=== PATIENT | male | born 1995 | race Two or more races ===

== ENCOUNTER 2016-07-31 01:07 | Emergency (ER) | payer SELFPAY ==
[~2016-07-31] VITALS: Ht 154.9 cm; Wt 61.2 kg
[2016-07-31 01:13] VITALS: BP 133/73
[2016-07-31 01:29] LABS: BASOPHILS % (AUTO) 1.1 % (0.0-2.0); EOSINOPHILS % (AUTO) 1.6 % (0.0-3.0); LYMPHOCYTES % (AUTO) 42.5 % (20.0-45.0); MEAN CORPUSCULAR HEMOGLOBIN 31.4 PG (27.0-31.0); MEAN CORPUSCULAR HGB CONC 34.3 G/DL (32.0-36.0); MEAN CORPUSCULAR VOLUME 91 FL (80-99); MEAN PLATELET VOLUME 6.1 FL (6.5-10.1); MONOCYTES % (AUTO) 6.7 % (1.0-10.0); NEUTROPHILS % (AUTO) 48.1 % (45.0-75.0); PLATELET COUNT 330 K/UL (150-450); RED BLOOD COUNT 5.16 M/UL (4.70-6.10); RED CELL DISTRIBUTION WIDTH 12.2 % (11.6-14.8)
[2016-07-31 01:45] LABS: ALCOHOL < 10 mg/dL; ANION GAP 32 (5-15); CARBON DIOXIDE 15 mEQ/L (20-30); CHLORIDE 89 mEQ/L (98-107); GLOMERULAR FILTRATION RATE > 60 mL/min (>60); HEMOLYSIS 25; SODIUM 136 mEQ/L (135-145)
--- NOTE | 2016-07-31 01:47 | Emergency Room Report ---
History of Present Illness General Chief Complaint: Seizure Source: Patient, Family Member Present Illness HPI Is a 21-year-old male with history of hypocalcemia. He presents with new onset seizure. Per his , he went out to smoke and when he came back to eat, he stiffen up and had a tonic-clonic seizure activity. This lasted for a minute or so. He was confused afterward. No or trauma. No incontinence of bowel or urine. Never had this problem before. He did say that he occasionally uses methamphetamine. Patient is slightly confused but otherwise denying any other problem. He does not drive. Allergies: Coded Allergies: No Known Allergies (Unverified , 07/31/16) Patient History Past Medical History: see triage record, old chart reviewed Past Surgical History: none Pertinent Family History: none Social History: Reports: drug use, smoking Immunizations: other Reviewed Nursing Documentation: PMH: Agreed, PSxH: Agreed Nursing Documentation-PM Past Medical History: No History, Except For Review of Systems Eye: Denies: blurred vision, eye pain ENT: Denies: ear pain, nose congestion, throat swelling Respiratory: Denies: cough, shortness of breath Cardiovascular: Denies: chest pain, palpitations Gastrointestinal: Denies: abdominal pain, diarrhea, nausea, vomiting Musculoskeletal: Denies: back pain, joint pain Skin: Denies: rash Neurological: Denies: headache, numbness Endocrine: Denies: increased thirst, increased urine Hematologic/Lymphatic: Denies: easy bruising All Other Systems: negative except mentioned in HPI Physical Exam Vital Signs Date Time Temp Pulse Resp B/P Pulse Ox O2 Delivery O2 Flow Rate FiO2 07/31/16 01:05 98.2 129 25 133/73 97 07/31/16 01:13 Room Air vitals with tachycardia Sp02 EP Interpretation: reviewed, normal General Appearance: well appearing, no apparent distress, alert Head: normocephalic, atraumatic Eyes: bilateral eye EOMI, bilateral eye PERRL ENT: hearing grossly normal, normal pharynx Neck: full range of motion, supple, no meningismus Respiratory: chest non-tender, lungs clear, normal breath sounds Cardiovascular #1: regular rate, rhythm, no murmur Gastrointestinal: normal bowel sounds, non tender, no mass, no organomegaly, no bruit, non-distended Musculoskeletal: back normal, normal range of motion Neurologic: alert, other - Mild confusion Psychiatric: mood/affect normal Skin: warm/dry Medical Decision Making Diagnostic Impression: Primary Impression: Epileptic seizure, generalized Additional Impressions: Hypokalemia Hypocalcemia Amphetamine abuse ER Course Patient with one episode seizure. He does have known history of hypocalcemia. He is not taking any calcium because he could not going up to [place] to see his own doctor. No evidence of bleed or neoplastic process. We'll discharge home. Lab Results Impression labs with hypocalcemia EKG Diagnostic Results Rate: normal, tachycardiac Rhythm: NSR ST Segments: no acute changes Rhythm Strip Diag. Results EP Interpretation: yes Rate: 107 Rhythm: NSR, no PVC's, no ectopy CT/MRI/US Diagnostic Results CT/MRI/US Diagnostic Results : Imaging Test Ordered: CT head Impression negative per radiologist Last Vital Signs Date Time Temp Pulse Resp B/P Pulse Ox O2 Delivery O2 Flow Rate FiO2 07/31/16 01:13 129 25 Room Air 07/31/16 01:13 98.2 133/73 97 Status: improved Disposition: HOME, SELF-CARE Condition: Stable Scripts Calcium Carbonate/Vitamin D3 (CALCIUM 1,000 + D3 CAPLET) 1 Each Tablet 1 EACH PO BID, #120 TAB Prov: JESSICA ALMEIDA M.D. 07/31/16 Patient Instructions: Seizure, Adult Additional Instructions: Follow up with your DrNemesio in 2-3 days. You would need a referral to see a neurologist. Return if symptom worsen. JESSICA ALMEIDA M.D. July 31, 2016 01:47
[2016-07-31 02:00] VITALS: BP 120/81
[2016-07-31 02:04] LABS: APPEARANCE,URINE CLEAR; KETONES,URINE NEGATIVE (NEGATIVE); LEUKOCYTE ESTERASE ,URINE 1+ (NEGATIVE); NITRITE,URINE NEGATIVE (NEGATIVE); PH,URINE 6 (4.5-8.0); PROTEIN,URINE 3+ (NEGATIVE); UROBILINOGEN,URINE 4 MG/DL (0.0-1.0)
[2016-07-31 02:10] LABS: CALCIUM 4.6 mg/dL (8.6-10.2)
[2016-07-31] MEDS ORDERED: Calcium Gluconate 1gm/10ml vial ONE (02:11)
[2016-07-31 02:22] LABS: BACTERIA,URINE FEW /HPF; SQUAMOUS EPITHELIAL CELL,UR OCCASIONAL /LPF (NONE/OCC)
[2016-07-31 02:24] LABS: AMORPHOUS SEDIMENT,UR FEW /LPF
[2016-07-31 02:25] LABS: HYALINE CASTS, URINE 0-2 /LPF
[2016-07-31 02:30] VITALS: BP 109/64
[2016-07-31] MEDS ORDERED: Calcium Gluconate 10% 1 GM in NS 110 ML IVPB ONE (02:45)
[2016-07-31] MEDS ORDERED: CALCIUM 1,0001 EAC1 PO (02:51)
[2016-07-31 02:57] VITALS: BP 109/64
--- NOTE | 2016-07-31 10:23 | Diagnostic Imaging Report ---
Indication: Seizure Technique: Continuous helical CT scanning of the head was performed without intravenous contrast material. Axial and coronal 5 mm sections were generated. Radiation dose was minimized using automated exposure control Dose: Total Dose Length Product - DLP [address] Dose Index - CTDIvol(s) 70.38 mGy. Comparison: None Findings: The ventricular system is normal in size and configuration. There is no shift of midline structures. No abnormal extra-axial fluid collections are noted. There is no evidence of intracerebral bleeding. No other abnormal high or low density areas are noted within the brain. There is bilateral maxillary sinus opacification. Impacted molars are seen within the maxillary sinuses bilaterally. The calvarium is intact. Visualized orbits are unremarkable. Impression: Normal CT scan of the head without contrast material. Maxillary sinus opacification bilaterally This essentially agrees with the preliminary interpretation provided overnight by [facility]. The CT scanner at [facility] is accredited by the [employer] and the scans are performed using protocols designed to limit radiation exposure to as low as reasonably achievable to attain images of sufficient resolution adequate for diagnostic evaluation.
--- NOTE | 2016-07-31 16:40 | Cardiology Report ---
APPROVED REPORT EKG Measurement Heart [id number] Sinus tachycardia Septal infarct, age undetermined Abnormal ECG
== END 2016-07-31 02:59 | disposition home or self-care (01) ==
LOC: EDBD 01:07 → EMR 01:20
DX: G40.409 Other generalized epilepsy and epileptic syndromes, not intractable, without status epilepticus (principal); E87.6 Hypokalemia; E83.51 Hypocalcemia; F15.10 Other stimulant abuse, uncomplicated; F17.200 Nicotine dependence, unspecified, uncomplicated
CPT/HCPCS: 36415; 70450; 80048; 80300; 81003; 82962; 85025; 93005; 96360; 96374; 99284; G0480; J0610; 80329